=== PATIENT | male | born 1995 | race Two or more races ===

== ENCOUNTER 2022-04-17 19:02 | Emergency (ER) | payer SELFPAY ==
[~2022-04-17] VITALS: Ht 185.4 cm; Wt 77.0 kg
[2022-04-17 19:08] VITALS: BP 136/76
[2022-04-17] MEDS ORDERED: TETANUS, DIPHTHERIA, PERTUSSIS VAC/PF 0.5ML (>10YR OLD) IM ONE (20:15)
[2022-04-17] MEDS ORDERED: BACITRACIN ZINC OINT UDPKT TOP ONE (20:15)
[2022-04-17] MEDS ORDERED: LIDOCAINE HCL/EPINEPHRINE 1%-EPI 1:100,000 20 ML VIAL INFIL ONE (20:15)
[2022-04-17] MEDS ORDERED: CEPH500C2 MT (22:39)
== END 2022-04-17 22:53 | disposition home or self-care (01) ==
LOC: ER 19:02
DX: S01.81XA Laceration without foreign body of other part of head, initial encounter (principal); S80.01XA Contusion of right knee, initial encounter; M54.2 Cervicalgia; M25.511 Pain in right shoulder; V49.49XA Driver injured in collision with other motor vehicles in traffic accident, initial encounter; Y93.89 Activity, other specified; Y92.488 Other paved roadways as the place of occurrence of the external cause; Z98.890 Other specified postprocedural states
CPT/HCPCS: 12013; 71045; 72040; 73030; 73560; 90471; 90715; 99284; J3490; Z7610